=== PATIENT | female | born 1935 | race Caucasian/White ===

== ENCOUNTER 2017-03-21 06:07 | Day surgery (SDC) | payer OTHER, MEDICARE ==
[2017-03-20 08:27] VITALS: BMI 25.4
--- NOTE | 2017-03-20 23:10 | PREOP ---
DATE OF ADMISSION: DATE OF DICTATION: 03/20/2017 DATE OF SURGERY: 03/21/2017 ADMISSION DIAGNOSIS: Neck mass. HISTORY OF PRESENT ILLNESS: This 82-year-old female has noted a swelling of her left anterior neck in the submental area. This has been present for some time but is otherwise asymptomatic. She had a recent fine needle aspiration biopsy which showed atypical epithelioid cells in a background of lymphoid cells. She is now admitted for surgery to excise this. PAST MEDICAL HISTORY: Primary medical doctor is Dr. Triston Munroe. Her medical illnesses include arthritis, hypertension and high cholesterol. She has a history of chronic sinusitis and has undergone knee replacement in 2016. No reported problems with anesthesia. She does not smoke. PRESENT MEDICATION: Include alprazolam, Atrovent spray, losartan, and ranitidine. ALLERGIES: There are no allergies to medications known. PHYSICAL EXAMINATION: General: Patient is well developed female, in no distress. HEENT: Head is normal. Eyes are clear. Ears are unremarkable. The nose has nasal septal deviation. Oral cavity shows some mild changes on the right lateral tongue. There is a small lymph node in the left anterior neck which is nontender and mobile. The remainder of her head/neck examination is unremarkable. IMPRESSION: Anterior neck mass. PLAN: Excision of anterior neck mass. INFORMED CONSENT: Patient understand the indications, alternatives, nature of risks and benefits of proposed surgery. Potential complications including but not limited to anesthesia, bleeding, infection, scar, and need for further treatment were discussed in detail. She understands and accepts these risks and wished to proceed with surgery. Questions were answered fully. KARAN LANDIN M.D. [id number] MTDD
[2017-03-21] MEDS ORDERED: LIDOCAINE HCL/PF 2% SDV 5ML VIAL ONE (07:58)
[2017-03-21] MEDS ORDERED: PROPOFOL 20 ML ONE ×2 (07:58)
[2017-03-21] MEDS ORDERED: LIDOCAINE 1%/EPI 1:100000 (20 ML MULTI DOSE VIAL) ONE (08:03)
--- NOTE | 2017-03-21 08:06 | HP ---
History & Physical Update - History History: No Change - Physical Physical: No Change - Assessment Assessment: No Change - Plan Plan: No Change
[2017-03-21] MEDS ORDERED: LIDOCAINE 1%/EPI 1:100000 (20 ML MULTI DOSE VIAL) IJ ONE (08:43)
[2017-03-21] MEDS ORDERED: ACETAMINOPHEN 325 MG TABLET (FP) PO PRN (09:20)
[2017-03-21] MEDS ORDERED: TRIMETHOBENZAMIDE HCL 200MG/2ML INJ IM PRN (09:20)
--- NOTE | 2017-03-21 09:20 | OP ---
Operative Note - Note: Operative Date: 03/21/17 ([id number]) Pre-Operative Diagnosis: left anterior neck lesion Operation: excision of deep cervical lymph node Findings: enlarged deep cervical lymph node Implants: none Post-Operative Diagnosis: Same as Pre-op Surgeon: Leoncio Martinez Anesthesiologist/TUBE DRAWER: Enriqueta France Anesthesia: MAC Specimens Removed: left anterior cervical lymph node Estimated Blood Loss (mls): 3 Blood Volume Replaced (mls): 0 Operative Report Dictated: Yes
[2017-03-21] MEDS ORDERED: oxyCODONE HCL 5 MG TABLET PO PRN (09:25)
[2017-03-21] MEDS ORDERED: ONDANSETRON 4 MG/2 ML VIAL IVPUSH PRN (09:25)
[2017-03-21] MEDS ORDERED: LACTATED RINGERS SOLUTION 1,000 ML IV SCH (09:30)
--- NOTE | 2017-03-21 10:07 | OP ---
DATE OF OPERATION: 03/21/2017 PREOPERATIVE DIAGNOSIS: Left anterior neck lymph node, enlarged. POSTOPERATIVE DIAGNOSIS: Left anterior neck lymph node, enlarged. PROCEDURE: Excision of deep anterior cervical lymph node. SURGEON: Karan Martinez MD ANESTHESIOLOGIST: Enriqueta France MD ANESTHESIA: MAC. INDICATIONS: This 82-year-old female has noticed swelling of her left anterior neck on examination. It is approximately 1 cm, rubbery, mobile, noted in the lower submental area, consistent with an enlarged lymph node. Fine needle aspiration biopsy in the office was abnormal demonstrating some epithelioid cells in a background of lymph cells. She is now admitted for excision of this lymph node. FINDINGS: Deep anterior cervical lymph node. DESCRIPTION OF PROCEDURE: The patient was brought to the operating room and placed on the operating table in supine position. Monitored anesthesia care was instituted. After patient was sedated, the anterior neck was prepped, local anesthesia, lidocaine 1% with epinephrine 1:100,000, was infiltrated into the area which was previously marked by the surgeon. She was then prepped and draped in the usual fashion for surgery. A small transverse incision was created within the natural occurring skin fold. It was carried down through skin and subcutaneous tissue. Hemostasis was achieved with electrocautery. Blunt dissection went through the subcutaneous tissues and eventually identified the deep cervical lymph node. This was then dissected from its surrounding tissue, and small traversing vein was clamped and ligated with silk. It was eventually removed and then sent to Pathology fresh for routine lymph node studies. The wound was irrigated with saline. Hemostasis was complete. The wound was then closed in layers using interrupted 4-0 Vicryl for the deep and subcutaneous layers, and then, a running absorbable suture for a subcuticular closure. The skin was then cleaned, prepped with benzoin, and overlapping Steri-Strips were applied. A dry sterile dressing was placed. Patient tolerated the procedure well. She was then awakened from general anesthesia and transferred to PACU in stable condition. Estimated blood loss was 3 mL She received crystalloid during the procedure. The left anterior cervical lymph node was sent to Pathology for routine studies. There were no complications. KARAN MARTINEZ M.D. [id number]
[2017-03-21 14:15] VITALS: BP 122/59; PULSE 72
[2017-03-21 14:19] VITALS: TEMP 97.8
--- NOTE | 2017-03-26 12:03 | PATH ---
Surgical Pathology Report Patient Name: JARET KC [facility]. Rec. #: [id number] /Age/Gender: 1935 (Age: 82) / F Account: [id number] Location: [facility] SURGICAL Taken: 03/21/2017 Received: 03/21/2017 Reported: 03/26/2017 Physicians: Leoncio Martinez M.D. Specimen(s) Received LEFT ANTERIOR NECK NODE Clinical History Enlarged lymph node Final Diagnosis LYMPH NODE, LEFT ANTERIOR NECK, EXCISION: BENIGN REACTIVE LYMPH NODE WITH SCATTERED GRANULOMAS, ALONG WITH SCATTERED MULTINUCLEATE FOREIGN BODY GIANT CELLS CONTAINING REFRACTILE MATERIAL. ACID FAST AND FUNGAL (PAS) STAINS ARE NEGATIVE. Comment: Flow cytometry performed and interpreted at [place], [place] ([id number]) shows the following: Interpretation: In the sample analyzed, there is no evidence of B or T-cell proliferative disorders. Recommend correlation with clinical findings and follow up as clinically indicated. Acid-fast and fungal culture results are pending, and will by reported by Microbiology. Electronically Signed Lul Art M.D. Gross Description Received fresh labeled "left anterior neck node" is a 1.8 x 1.0 x 0.8 cm portion of yellow fatty tissue containing a 0.8 cm in greatest dimension lymph node. Cut surface of the lymph node reveals a uniform travis surface with no masses identified. Touch preps are prepared. A insurance verification representative portion is submitted for flow cytometry. A insurance verification representative portion is submitted for acid fast and fungal cultures. All the remaining tissue is submitted in one cassette. [facility]/03/21/2017 [facility]/03/21/2017
== END 2017-03-21 12:10 | disposition home or self-care (01) ==
LOC: JASU-SURG 06:07
PROVIDERS: ATTEND Otolaryngology
PROC: 07B20ZX Excision of Left Neck Lymphatic, Open Approach, Diagnostic (ICD-10-PCS; principal; 2017-03-21 08:00)
DX: R59.0 Localized enlarged lymph nodes (principal)
CPT/HCPCS: 87102; 87116; 87206; 87210; 88305-TC; 88312-TC; 94760

== ENCOUNTER 2018-04-03 09:44 | Day surgery (SDC) | payer OTHER, MEDICARE ==
[2018-04-02 13:59] VITALS: BMI 26.3
[2018-04-03 11:30] VITALS: TEMP 97.6
[2018-04-03 11:44] VITALS: PULSE 57
[2018-04-03 12:30] VITALS: BP 150/72
--- NOTE | 2018-04-04 16:54 | PATH ---
Surgical Pathology Report Patient Name: JARET KC [facility]. Rec. #: [id number] /Age/Gender: 1935 (Age: 83) / F Account: [id number] Location: [facility] Taken: 04/03/2018 Received: 04/03/2018 Reported: 04/04/2018 Physicians: Lesli Jo M.D. Specimen(s) Received A: BX HEPATIC FLEXURE POLYP B: BX CECUM POLYP C: DISTAL ASCENDING COLON POLYP Clinical History History of colon polyp, family history of colon cancer Postoperative diagnosis: Diverticulosis, colon polyps Final Diagnosis A. COLON, HEPATIC FLEXURE, POLYP, POLYPECTOMY: POLYPOID COLONIC MUCOSA WITHOUT SIGNIFICANT PATHOLOGIC FINDINGS. B. CECUM, POLYP, BIOPSY: TUBULAR ADENOMA. C. DISTAL ASCENDING COLON, POLYP, POLYPECTOMY: TUBULAR ADENOMA. Electronically Signed Rama Mckeon M.D. Gross Description A. Received in formalin, labeled "polyp hepatic flexure" is a travis, irregular portion of soft tissue measuring 0.7 cm. in greatest dimension. The specimen is submitted in toto in one cassette. B. Received in formalin, labeled "biopsy polyp cecum" are 3 travis, irregular portions of soft tissue ranging from 0.1-0.2 cm. in greatest dimension. The specimens are submitted in toto in one cassette. C. Received in formalin, labeled "polyp distal ascending" are 5 travis, irregular portions of soft tissue ranging from 0.1-0.4 cm. in greatest dimension. The specimens are submitted in toto in one cassette. 04/03/201804/03/2018
== END 2018-04-03 12:30 | disposition home or self-care (01) ==
LOC: JASU-ENDO 09:44
PROVIDERS: ATTEND Internal Medicine Gastroenterology
PROC: 0DBL8ZX Excision of Transverse Colon, Via Natural or Artificial Opening Endoscopic, Diagnostic (ICD-10-PCS; 2018-04-03)
PROC: 0DBH8ZX Excision of Cecum, Via Natural or Artificial Opening Endoscopic, Diagnostic (ICD-10-PCS; 2018-04-03)
PROC: 0DBK8ZX Excision of Ascending Colon, Via Natural or Artificial Opening Endoscopic, Diagnostic (ICD-10-PCS; principal; 2018-04-03 10:30)
DX: Z12.11 Encounter for screening for malignant neoplasm of colon (principal); Z86.010 Personal history of colon polyps; D12.2 Benign neoplasm of ascending colon; D12.0 Benign neoplasm of cecum; D12.3 Benign neoplasm of transverse colon; K63.89 Other specified diseases of intestine; K57.30 Diverticulosis of large intestine without perforation or abscess without bleeding; K64.8 Other hemorrhoids
CPT/HCPCS: 88305-TC

== ENCOUNTER 2021-02-16 04:48 | Day surgery (SDC) | payer OTHER, BC ==
[2021-02-15 10:54] VITALS: BMI 24.8
[2021-02-16] MEDS ORDERED: KETAMINE HCL 200 MG/20 ML VIAL ONE (07:09)
[2021-02-16 08:51] VITALS: TEMP 98
[2021-02-16 09:56] VITALS: BP 141/76; PULSE 61
== END 2021-02-16 10:10 | disposition home or self-care (01) ==
LOC: JASU-ENDO 04:48
PROVIDERS: ATTEND Internal Medicine Gastroenterology
PROC: 0DB98ZX Excision of Duodenum, Via Natural or Artificial Opening Endoscopic, Diagnostic (ICD-10-PCS; 2021-02-16)
PROC: 0DB68ZX Excision of Stomach, Via Natural or Artificial Opening Endoscopic, Diagnostic (ICD-10-PCS; 2021-02-16)
PROC: 0DBK8ZX Excision of Ascending Colon, Via Natural or Artificial Opening Endoscopic, Diagnostic (ICD-10-PCS; principal; 2021-02-16 08:00)
DX: Z12.11 Encounter for screening for malignant neoplasm of colon (principal); Z86.010 Personal history of colon polyps; D12.2 Benign neoplasm of ascending colon; K64.8 Other hemorrhoids; K57.30 Diverticulosis of large intestine without perforation or abscess without bleeding; Z80.0 Family history of malignant neoplasm of digestive organs; K21.9 Gastro-esophageal reflux disease without esophagitis; K29.40 Chronic atrophic gastritis without bleeding; B96.81 Helicobacter pylori [H. pylori] as the cause of diseases classified elsewhere

== ENCOUNTER 2021-07-26 14:11 | Emergency (ER) | payer OTHER, BC ==
[2021-07-26 14:32] VITALS: TEMP 97.6; BMI 25.0
[2021-07-26] MEDS ORDERED: LIDOCAINE 5% TOPICAL PATCH TP ONE (15:10)
[2021-07-26] MEDS ORDERED: LIDOCAINE 5% TOPICAL PATCH ONE (15:43)
[2021-07-26 17:05] VITALS: BP 155/86; PULSE 80
[2021-07-26] MEDS ORDERED: LIDOCAINE PATCH REMOVAL MC SCH (22:00)
== END 2021-07-26 17:07 | disposition home or self-care (01) ==
LOC: FER 14:11
DX: R55 Syncope and collapse (principal); R07.89 Other chest pain; M25.512 Pain in left shoulder; W10.8XXA Fall (on) (from) other stairs and steps, initial encounter
CPT/HCPCS: 70450-TC; 71045-TC-FY; 72125-TC; 99284-25